=== PATIENT | female | born 1985 | race African-American/Black ===

== ENCOUNTER 2019-02-18 12:41 | Emergency (ER) | payer MEDICAID ==
[~2019-02-18] VITALS: Ht 165.1 cm; Wt 68.0 kg
[2019-02-18 15:14] VITALS: BP 122/71
== END 2019-02-18 15:18 | disposition home or self-care (01) ==
LOC: ER 12:54
DX: N64.4 Mastodynia (principal)
CPT/HCPCS: 93005; 99283

== ENCOUNTER 2019-03-20 20:42 | Emergency (ER) | payer MEDICAID ==
[~2019-03-20] VITALS: Ht 160 cm; Wt 63.0 kg
[2019-03-20 20:50] VITALS: BP 121/70
[2019-03-20] MEDS ORDERED: ACETAMINOPHEN 650MG/20.3ML UDC PO ONE (22:15)
== END 2019-03-20 22:46 | disposition home or self-care (01) ==
LOC: ER 20:42
DX: M54.2 Cervicalgia (principal); M54.9 Dorsalgia, unspecified; Z59.0 Homelessness
CPT/HCPCS: 99282